=== PATIENT | female | born 1980 | race African-American/Black ===

== ENCOUNTER 2018-05-28 21:38 | Emergency (ER) | payer SELFPAY ==
[~2018-05-28] VITALS: Ht 175.3 cm; Wt 114.0 kg
[2018-05-29 02:47] LABS: BASOPHILS % 0.4 % (0.0-2.0); EOSINOPHILS % 3.6 % (0.0-5.0); HEMATOCRIT. 28.1 % (36.0-48.0); HEMOGLOBIN. 9.4 g/dL (12.0-16.0); LYMPHOCYTES % 29.8 % (20.0-50.0); MEAN CORPUSCULAR VOLUME 86.8 fL (81.0-99.0); MEAN PLATELET VOLUME 7.7 fl (7.4-10.4); MONOCYTES % 7.3 % (2.0-8.0); NEUTROPHILS % 58.9 % (40.0-76.0); PLATELET 238 x1000/uL (130-400); RED BLOOD CELL COUNT 3.24 mill/uL (4.2-5.4); RED CELL DISTRIBUTION WIDTH 15.4 % (11.6-14.6)
[2018-05-29 02:57] LABS: INR 1.1; PROTHROMBIN TIME 11.6 sec (9.4-11.6)
[2018-05-29 02:59] LABS: COLOR URINE BLOODY (YELLOW)
[2018-05-29 03:00] LABS: CLARITY URINE TURBID (CLEAR); KETONES URINE NEGATIVE (NEGATIVE); OCCULT BLOOD URINE 4+ (NEGATIVE); PH URINE 6.5 (4.5-8.0); PROTEIN URINE 4+ (NEGATIVE); SPECIFIC GRAVITY URINE 1.037 (1.005-1.030)
[2018-05-29 03:01] LABS: LEUKOCYTE ESTERASE URINE 1+ (NEGATIVE); NITRITE URINE POSITIVE (NEGATIVE); UROBILINOGEN URINE 0.2 E.U./dL (0.2-1.0)
[2018-05-29 03:09] LABS: CHLORIDE 107 mEq/L (98-107)
[2018-05-29 03:20] LABS: B-HCG QUANTITATIVE 4 mIU/mL (<3)
[2018-05-29] MEDS ORDERED: METHYLERGONOVINE MALEATE 0.2 MG/ML IM ONE (04:45)
[2018-05-29] MEDS ORDERED: SODIUM CHLORIDE 0.9% 1,000 ML IV ONE ×2 (04:48→06:24)
[2018-05-29] MEDS ORDERED: METHYLERGONOVINE MALEATE 0.2 MG/ML IM SCH (05:13)
[2018-05-29 07:21] LABS: HEMATOCRIT 27.9 % (36.0-48.0); HEMOGLOBIN 9.1 g/dL (12.0-16.0)
[2018-05-29 09:13] VITALS: BP 146/98
== END 2018-05-29 09:38 | disposition home or self-care (01) ==
LOC: ER 21:38
DX: O20.9 Hemorrhage in early pregnancy, unspecified (principal); O23.41 Unspecified infection of urinary tract in pregnancy, first trimester; O26.891 Other specified pregnancy related conditions, first trimester; N85.00 Endometrial hyperplasia, unspecified; N71.9 Inflammatory disease of uterus, unspecified; N83.209 Unspecified ovarian cyst, unspecified side; Z3A.00 Weeks of gestation of pregnancy not specified; O09.521 Supervision of elderly multigravida, first trimester
CPT/HCPCS: 36415; 76830; 76856; 80053; 81003; 84702; 85014; 85018; 85025; 85610; 86850; 86900; 86901; 96372; 99285; J2210; J7030; Z7610

== ENCOUNTER 2018-12-28 14:14 | Inpatient (IN) | payer OTHER ==
[~2018-12-28] VITALS: Ht 180.3 cm; Wt 119.9 kg
[2018-12-28 23:46] LABS: CLARITY URINE CLOUDY (CLEAR); COLOR URINE YELLOW (YELLOW); KETONES URINE TRACE (NEGATIVE); LEUKOCYTE ESTERASE URINE NEGATIVE (NEGATIVE); NITRITE URINE NEGATIVE (NEGATIVE); OCCULT BLOOD URINE NEGATIVE (NEGATIVE); PROTEIN URINE 2+ (NEGATIVE); SPECIFIC GRAVITY URINE 1.028 (1.005-1.030); UROBILINOGEN URINE 0.2 E.U./dL (0.2-1.0)
[2018-12-29 00:02] LABS: HEMATOCRIT. 32.7 % (36.0-48.0); HEMOGLOBIN. 9.3 g/dL (12.0-16.0); MEAN CORPUSCULAR HEMOGLOBIN 19.3 pg (28.0-32.0); MEAN CORPUSCULAR VOLUME 67.4 fL (81.0-99.0); MEAN PLATELET VOLUME 7.4 fl (7.4-10.4); PLATELET 360 x1000/uL (130-400); RED BLOOD CELL COUNT 4.85 mill/uL (4.2-5.4)
[2018-12-29 00:05] LABS: CHLORIDE 109 mEq/L (98-107)
[2018-12-29 00:07] LABS: *AMPHETAMINES SCREEN URINE NEGATIVE (NEGATIVE); *BARBITURATES SCREEN URINE NEGATIVE (NEGATIVE); *BENZODIAZEPINES SCREEN URINE NEGATIVE (NEGATIVE); *COCAINE SCREEN URINE NEGATIVE (NEGATIVE)
[2018-12-29 00:08] LABS: CANNABINOID URINE SCREEN NEGATIVE (NEGATIVE); METHADONE URINE SCREEN NEGATIVE (NEGATIVE); OPIATES URINE SCREEN NEGATIVE (NEGATIVE); PHENCYCLIDINE URINE SCREEN NEGATIVE (NEGATIVE)
[2018-12-29] MEDS ORDERED: FUROSEMIDE 20MG/2ML VIAL IVP ONE (00:30)
[2018-12-29 01:02] LABS: PLATELET ESTIMATE NORMAL
[2018-12-29] MEDS ORDERED: CLONIDINE 0.1MG TABLET PO PRN (09:00)
[2018-12-29] MEDS ORDERED: ONDANSETRON HCL 4MG/2ML INJ IV PRN (09:00)
[2018-12-29] MEDS ORDERED: ACETAMINOPHEN 325MG TABLET PO PRN (09:00)
[2018-12-29 09:20] VITALS: BP 160/111
[2018-12-29] MEDS: AMLODIPINE 5MG TABLET PO SCH ×2 (11:56→21:36)
[2018-12-29] MEDS: FUROSEMIDE 40MG/4ML VIAL IVP SCH ×2 (11:56→17:12)
[2018-12-29] MEDS ORDERED: LOSARTAN POTASSIUM 50 MG TABLET PO SCH (12:00)
[2018-12-29 14:01] LABS: HEPATITIS B SURFACE ANTIGEN NEGATIVE
[2018-12-29] MEDS: CARVEDILOL 6.25 MG TABLET PO SCH ×2 (14:14→21:31)
[2018-12-29] MEDS: HYDRALAZINE HCL 50MG TABLET PO SCH ×2 (14:14→21:31)
[2018-12-29] MEDS: ENOXAPARIN 30MG/0.3ML SYR SUBCUT SCH ×2 (14:15→21:32)
[2018-12-29 14:31] LABS: HEPATITIS A AB IGM NEGATIVE (NEGATIVE)
[2018-12-29] MEDS ORDERED: LEVO112T7 MT (15:21)
[2018-12-29 16:00] VITALS: BP 138/91
[2018-12-29 16:38] LABS: TOTAL IRON BINDING CAPACITY 431 ug/dL (250-450)
[2018-12-29] MEDS: LOSARTAN POTASSIUM 50 MG TABLET PO SCH ×2 (17:16→21:30)
[2018-12-29] MEDS: METFORMIN HCL 500MG TABLET PO SCH (17:20)
[2018-12-30] MEDS ORDERED: LEVOTHYROXINE SODIUM 50MCG TABLET PO SCH (07:10)
[2018-12-30 07:20] LABS: HEMOGLOBIN. 8.8 g/dL (12.0-16.0); MEAN CORPUSCULAR HEMOGLOBIN 19.5 pg (28.0-32.0); MEAN CORPUSCULAR VOLUME 66.4 fL (81.0-99.0); MEAN PLATELET VOLUME 7.5 fl (7.4-10.4); PLATELET 349 x1000/uL (130-400); RED BLOOD CELL COUNT 4.51 mill/uL (4.2-5.4); RED CELL DISTRIBUTION WIDTH 20.6 % (11.6-14.6)
[2018-12-30] MEDS: METFORMIN HCL 500MG TABLET PO SCH (07:40)
[2018-12-30 08:00] VITALS: BP 118/82
[2018-12-30 08:22] LABS: CHLORIDE 102 mEq/L (98-107)
[2018-12-30] MEDS: HYDRALAZINE HCL 50MG TABLET PO SCH (08:25)
[2018-12-30] MEDS: CARVEDILOL 6.25 MG TABLET PO SCH (08:26)
[2018-12-30] MEDS: LOSARTAN POTASSIUM 50 MG TABLET PO SCH (08:26)
[2018-12-30] MEDS: AMLODIPINE 5MG TABLET PO SCH (08:27)
[2018-12-30] MEDS: FUROSEMIDE 40MG/4ML VIAL IVP SCH (08:37)
[2018-12-30] MEDS: ENOXAPARIN 30MG/0.3ML SYR SUBCUT SCH (08:37)
[2018-12-30] MEDS ORDERED: REGADENOSON 0.4 MG/5 ML IV ONE ×2 (09:15→11:22)
[2018-12-30 09:16] LABS: T4 FREE 0.8 ng/dL (0.76-1.46)
[2018-12-30 12:00] VITALS: BP 143/85
[2018-12-30 12:20] LABS: PLATELET ESTIMATE NORMAL
[2018-12-30] MEDS ORDERED: POTASSIUM CHLORIDE 20MEQ TABLET SR PO NR (13:15)
[2018-12-30 14:23] VITALS: BP 143/85
== END 2018-12-30 14:30 | disposition home or self-care (01) | DRG 291 ==
LOC: ER 16:22 → 8WST 12-29 02:39 → EDBEDREQTM 12-29 02:44 → EDBEDREQ 12-29 02:44 → ENRESERV 12-29 08:35
PROVIDERS: ADMIT Internal Medicine; ATTEND Internal Medicine
DX: I11.0 Hypertensive heart disease with heart failure (principal); I50.21 Acute systolic (congestive) heart failure; E44.1 Mild protein-calorie malnutrition; E66.9 Obesity, unspecified; I42.9 Cardiomyopathy, unspecified; I16.0 Hypertensive urgency; E03.9 Hypothyroidism, unspecified; D50.9 Iron deficiency anemia, unspecified; E87.8 Other disorders of electrolyte and fluid balance, not elsewhere classified; I27.20 Pulmonary hypertension, unspecified; R73.03 Prediabetes; Z68.36 Body mass index [BMI] 36.0-36.9, adult; Z88.0 Allergy status to penicillin; Z71.3 Dietary counseling and surveillance
CPT/HCPCS: 36415; 71045; 78452; 80048; 80061; 80305; 82728; 83036; 83540; 83550; 83880; 84439; 84443; 84484; 85379; 86705; 86709; 86803; 86850; 86900; 87340; 93005; 93017; 93306; 93970; 96374; 99285; A9500; J1650; J1940; J2785